=== PATIENT | male | born 1970 | race Caucasian/White ===

== ENCOUNTER 2021-10-31 08:24 | Emergency (ER) | payer BC, OTHER ==
[2021-10-31 08:36] VITALS: TEMP 97.6; BMI 27.2
[2021-10-31] MEDS ORDERED: METHOCARBAMOL 500 MG TABLET PO ONE (09:17)
[2021-10-31 09:33] LABS: BASO % 1.1 % (0-2.0); EOS % 1.3 % (0-4.5); HEMATOCRIT 49.2 % (35.4-49); HEMOGLOBIN 17.1 GM/dL (11.7-16.9); MCH 31.5 pg (25.7-33.7); MCHC 34.7 g/dl (32.0-35.9); MEAN CELL VOLUME 90.9 fl (80-96); MEAN PLT VOLUME 7.4 fl (7.5-11.1); MONO % 7.3 % (3.8-10.2); NEUT % 75.3 % (42.8-82.8); PLATELET COUNT 215 10^3/uL (134-434); RBC 5.42 M/mm3 (4.00-5.60); RDW 13.6 % (11.9-15.9); WHITE BLOOD COUNT 4.6 K/mm3 (4.0-10.0)
[2021-10-31 09:54] LABS: CHLORIDE 102 mmol/L (98-107); SODIUM 132 mmol/L (136-145)
[2021-10-31 09:55] LABS: CALCIUM 9.1 mg/dL (8.5-10.1); GLUCOSE,RANDOM 125 mg/dL (74-106)
[2021-10-31 09:56] LABS: BLOOD UREA NITROGEN 8.4 mg/dL (7-18); CO2 25 mmol/L (21-32)
[2021-10-31 09:59] LABS: CREATININE 1.1 mg/dL (0.55-1.3)
[2021-10-31 10:00] LABS: BILIRUBIN,TOTAL 0.8 mg/dL (0.2-1)
[2021-10-31 10:01] LABS: ALK PHOS 29 U/L (45-117); TOT PROT 8.3 g/dl (6.4-8.2)
[2021-10-31 10:02] LABS: ANION GAP 5 MMOL/L (8-16); SGOT/AST 121 U/L (15-37); SGPT/ALT 56 U/L (13-61)
[2021-10-31] MEDS ORDERED: METHOCARBAMOL 500 MG TABLET ONE (10:57)
[2021-10-31] MEDS ORDERED: ASPIRIN 81 MG CHEWABLE TABLETS ONE ×2 (11:40→13:14)
[2021-10-31 11:49] LABS: CALCIUM 9.4 mg/dL (8.5-10.1)
[2021-10-31 11:50] LABS: BLOOD UREA NITROGEN 8.4 mg/dL (7-18)
[2021-10-31 11:53] LABS: CREATININE 0.9 mg/dL (0.55-1.3)
[2021-10-31] MEDS ORDERED: LABETALOL HCL 5 MG/1 ML (100MG/20 ML VIAL) IVPUSH ONE (11:58)
[2021-10-31] MEDS ORDERED: HEPARIN NA (PORCINE) 5,000 UNITS/ML 1ML VIAL IVPUSH PRN ×2 (11:59)
[2021-10-31] MEDS ORDERED: HEPARIN SOD,PORK IN 0.45% NACL 25,000 UNITS/500 ML INFUS.BAG IVPB SCH (12:00)
[2021-10-31] MEDS ORDERED: CLOPIDOGREL BISULFATE 300 MG TABLET PO ONE (12:10)
[2021-10-31] MEDS ORDERED: TICAGRELOR 90 MG TABLET PO ONE (12:16)
[2021-10-31] MEDS ORDERED: TICAGRELOR 60 MG TABLET PO ONE (12:16)
[2021-10-31] MEDS ORDERED: HEPARIN NA (PORCINE) 5,000 UNITS/ML 1ML VIAL ONE (12:20)
[2021-10-31] MEDS ORDERED: LABETALOL HCL 5 MG/1 ML (100MG/20 ML VIAL) ONE (12:20)
[2021-10-31] MEDS ORDERED: HEPARIN INFUSION - 25,000 UNITS/500 ML INFUS.BAG IVPB ONE (12:21)
[2021-10-31 13:20] VITALS: BP 172/107; PULSE 72
== END 2021-10-31 13:20 | disposition short-term general hospital (02) ==
LOC: JER 08:24
PROC: 3E033NZ Introduction of Analgesics, Hypnotics, Sedatives into Peripheral Vein, Percutaneous Approach (ICD-10-PCS; principal; 2021-10-31)
DX: R07.9 Chest pain, unspecified (principal)
CPT/HCPCS: 36415; 71046-TC-FY; 80048; 80053; 82550; 82553; 84484; 85025; 93005; 93010; 99284-25; C9803-CS; J1644; U0003; U0005

== ENCOUNTER 2022-04-02 10:32 | Emergency (ER) | payer OTHER ==
[2022-04-02 10:52] VITALS: RESP 18; TEMP 98.3; BMI 26.5
[2022-04-02 11:58] LABS: BASO % 0.5 % (0-2.0); EOS % 0.1 % (0-4.5); HEMATOCRIT 44.4 % (35.4-49); HEMOGLOBIN 15.7 GM/dL (11.7-16.9); LYMPH % 9.1 % (8-40); MCH 31.8 pg (25.7-33.7); MCHC 35.3 g/dl (32.0-35.9); MEAN CELL VOLUME 90.1 fl (80-96); MEAN PLT VOLUME 6.7 fl (7.5-11.1); NEUT % 83.3 % (42.8-82.8); PLATELET COUNT 218 10^3/uL (134-434); RBC 4.92 M/mm3 (4.00-5.60); RDW 13.1 % (11.9-15.9); WHITE BLOOD COUNT 6.3 K/mm3 (4.0-10.0)
[2022-04-02 12:21] LABS: BLOOD UREA NITROGEN 6.9 mg/dL (7-18); CALCIUM 9.1 mg/dL (8.5-10.1)
[2022-04-02 12:26] LABS: BILIRUBIN,TOTAL 1.1 mg/dL (0.2-1); TOT PROT 7.2 g/dl (6.4-8.2)
[2022-04-02 15:54] VITALS: BP 155/94; PULSE 82
== END 2022-04-02 16:47 | disposition home or self-care (01) ==
LOC: JER 10:32
DX: R07.9 Chest pain, unspecified (principal)
CPT/HCPCS: 0241U-QW; 36415; 71046-TC-FY; 80053; 84484; 85025; 93005; 93010; 99285-25